=== PATIENT | female | born 1945 | race Caucasian/White ===

== ENCOUNTER → 2016-06-12 | Outpatient (CLI) | payer OTHER | LOC: EDSTATUS 10:25 → FIMAGING 16:41 → FLAB 16:41 | PROVIDERS: ATTEND Physician Assistant | DX: R06.02 Shortness of breath (principal) ==

== ENCOUNTER → 2016-11-01 | Outpatient (CLI) | payer OTHER | LOC: CIMAGING 12:14 | PROVIDERS: ATTEND Internal Medicine | DX: Z12.31 Encounter for screening mammogram for malignant neoplasm of breast (principal) | CPT/HCPCS: G0202 ==

== ENCOUNTER → 2018-01-01 | Outpatient (CLI) | payer OTHER | LOC: CIMAGING 08:28 | PROVIDERS: ATTEND Internal Medicine | DX: Z12.31 Encounter for screening mammogram for malignant neoplasm of breast (principal); Z85.820 Personal history of malignant melanoma of skin; Z85.038 Personal history of other malignant neoplasm of large intestine; Z80.3 Family history of malignant neoplasm of breast ==

== ENCOUNTER → 2018-07-11 | Outpatient (CLI) | payer OTHER | LOC: FIMAGING 11:51 | PROVIDERS: ATTEND Registered Nurse | DX: S89.002A Unspecified physeal fracture of upper end of left tibia, initial encounter for closed fracture (principal) ==